=== PATIENT | female | born 1995 | race Caucasian/White ===

== ENCOUNTER → 2016-08-10 | Outpatient (CLI) | payer OTHER | LOC: MW.CHOBGYN 12:49 | PROVIDERS: ATTEND Advanced Practice Midwife | DX: Z34.90 Encounter for supervision of normal pregnancy, unspecified, unspecified trimester (principal) | CPT/HCPCS: 36415; 82950; 85027; 86850 ==

== ENCOUNTER 2016-08-18 02:48 | Outpatient (CLI) | payer OTHER ==
[2016-08-18] MEDS ORDERED: Acetaminophen/oxyCODONE 325-5 MG Tab PO ONE (04:47)
[2016-08-18] MEDS ORDERED: Nitrofurantoin Monohydrate/Macrocrystalline 100 MG Cap PO ONE (04:47)
== END 2016-08-18 06:05 | disposition home or self-care (01) ==
LOC: MW.OBCHECK 02:48 → MW.OB 02:51 → MW.OBCHECK 06:05
PROVIDERS: ATTEND Obstetrics & Gynecology
DX: R11.2 Nausea with vomiting, unspecified (principal); R10.9 Unspecified abdominal pain; Z34.83 Encounter for supervision of other normal pregnancy, third trimester
CPT/HCPCS: 59025; 81001; 84112; A9270

== ENCOUNTER → 2016-08-20 | Outpatient (CLI) | payer OTHER | END | disposition home or self-care (01) | LOC: MW.CHOBGYN 16:07 | PROVIDERS: ATTEND Advanced Practice Midwife | DX: M54.9 Dorsalgia, unspecified (principal) | CPT/HCPCS: 81001; 87086 ==

== ENCOUNTER → 2016-08-21 | Outpatient (CLI) | payer OTHER | LOC: MW.CHOBGYN 08:38 | PROVIDERS: ATTEND Advanced Practice Midwife | DX: R39.9 Unspecified symptoms and signs involving the genitourinary system (principal) | CPT/HCPCS: 36415; 85025 ==

== ENCOUNTER → 2016-08-24 | Outpatient (CLI) | payer OTHER ==
[2016-08-24 09:31] LABS: CHLORIDE,CL 107 mmol/L (98-110); SODIUM,NA 138 mmol/L (136-146)
== END ==
LOC: MW.CHFP 08:34
PROVIDERS: ATTEND Physician Assistant
DX: R10.9 Unspecified abdominal pain (principal)
CPT/HCPCS: 36415; 80053; 81001; 82150; 83690; 85025; 85652; 87086

== ENCOUNTER → 2016-09-26 | Outpatient (CLI) | payer OTHER ==
--- NOTE | 2016-09-26 14:07 | US ---
ULTRASOUND EXAMINATION OF the right lower extremity WITH DOPPLER HISTORY: Pain FINDINGS: Examination of the right leg was performed from the groin to the calf region. All visualized segmen ts including common femoral, proximal greater saphenous, superficial femoral, popliteal and calf vei ns appear patent with good compressibility and augmentation. Adequate color flow was not appreciate d without augmentation. This may represent compression on the IVC secondary to the patient's gravid state. IMPRESSION: No deep vein thrombosis identified. If symptoms consist consider follow-up imaging.
== END ==
LOC: MW.CHOBGYN 12:09
PROVIDERS: ATTEND Advanced Practice Midwife
DX: M79.661 Pain in right lower leg (principal); M79.89 Other specified soft tissue disorders
CPT/HCPCS: 93971-26-RT; 93971-RT

== ENCOUNTER → 2016-10-08 | Outpatient (CLI) | payer OTHER | LOC: MW.CHOBGYN 15:56 | PROVIDERS: ATTEND Advanced Practice Midwife | DX: Z34.90 Encounter for supervision of normal pregnancy, unspecified, unspecified trimester (principal) | CPT/HCPCS: 87081 ==

== ENCOUNTER 2016-10-24 16:33 | Inpatient (IN) | payer OTHER ==
[2016-10-24] MEDS ORDERED: Sodium Chloride 0.9% 10 ML Syringe FLUSH PRN (16:59)
[2016-10-24] MEDS ORDERED: Carboprost Tromethamine 250 MCG/1 ML Amp IM PRN (16:59)
[2016-10-24] MEDS ORDERED: Butorphanol 1 MG/ML SDV IVPUSH PRN (16:59)
[2016-10-24] MEDS ORDERED: Sodium Chloride 0.9% 2.5 ML Syringe FLUSH PRN (16:59)
[2016-10-24] MEDS ORDERED: Methylergonovine 0.2 MG/1 ML Amp IM PRN (16:59)
[2016-10-24] MEDS ORDERED: Terbutaline 1 MG/ML SDV SUBCUT PRN (16:59)
[2016-10-24] MEDS ORDERED: Lidocaine 1% 50 ML MDV INJECT PRN (16:59)
[2016-10-24] MEDS ORDERED: Water For Irrigation,Sterile 1,000 ML Container IRR PRN (16:59)
[2016-10-24] MEDS ORDERED: Nalbuphine 10 MG/1 ML Vial IVPUSH PRN (16:59)
[2016-10-24] MEDS ORDERED: Oxytocin/Lactated Ringers 30 UNIT/500 ML BAG IV SCH (17:00)
[2016-10-24] MEDS ORDERED: Lactated Ringers 1,000 ML IV SCH (17:00)
[2016-10-24] MEDS ORDERED: Misoprostol 25 MCG (1/4 of 100 MCG) Tab PO ONE (17:07)
[2016-10-24] MEDS ORDERED: Misoprostol 25 MCG (1/4 of 100 MCG) Tab ONE (18:06)
--- NOTE | 2016-10-24 18:18 | PCM.LDHP ---
L&D History of Present Illness - General Date of Service: 10/24/16 Admit Problem/Dx: Patient Status Order with Admit Dx/Problem 10/24/16 17:01 Patient Status [ADT] Routine Admission Diagnosis/Problem Admission Diagnosis/Problem -induced hypertension 10/24/16 18:13 21 yo EDC 11/03/2016 38 4/7 wks. Comes from the clinic due to elevated BP 160/100, A+, R Equivocal, GBS neg. 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 General: Reports: No Symptoms HEENT: Reports: No Symptoms Pulmonary: Reports: No Symptoms Cardiovascular: Reports: No Symptoms Gastrointestinal: Reports: No Symptoms Genitourinary: Reports: No Symptoms Musculoskeletal: Reports: No Symptoms Skin: Reports: No Symptoms Psychiatric: Reports: No Symptoms Neurological: Reports: No Symptoms Hematologic/Lymphatic: Reports: No Symptoms Immunologic: Reports: No Symptoms L&D Exam - Exam Exam: See Below - Vital Signs Weight: 74.843 kg - OB Specific Movement: Active Heart Tones: Present Heart Rate (FHR) Variability: Moderate (6-25 bmp) Presentation: Vertex Estimated Weight: 3600 - Campos Score Campos Score Cervix Position: Midposition Campos Score Consistency: Soft Campos Score Effacement: 31-50% Campos Score Dilation: 1-2 cm Campos Score 's Station: -2 Campos Score Total: 6 - Exam General: Alert, Oriented, Cooperative HEENT: Hearing Intact Lungs: Normal Respiratory Effort Abdomen: Soft (gravid) Rectal Exam: Deferred Genitourinary: Normal bimanual exam, Cervical dilitation Back Exam: Full Range of Motion Extremities: Normal Inspection Skin: Warm, Dry, Intact Neurological: Cranial Nerves Intact, Reflexes Equal Bilateral, Normal Gait, Normal Speech, Normal Tone Psychiatric: Alert, Normal Affect, Normal Mood - Patient Data Lab Results last 24 hrs: Laboratory Results - last 24 hr 10/24/16 10/24/16 Range/Units 16:25 17:29 WBC 10.23 (4.0-11.0) K/uL RBC 3.97 L (4.30-5.90) M/uL Hgb 10.7 L (12.0-16.0) g/dL Hct 32.6 L (36.0-46.0) % MCV 82.1 (80.0-98.0) fL MCH 27.0 (27.0-32.0) pg MCHC 32.8 (31.0-37.0) g/dL RDW Std Deviation 43.3 (28.0-62.0) fl RDW Coeff of Margarita 14 (11.0-15.0) % Plt Count 214 (150-400) K/uL MPV 12.10 H (7.40-12.00) fL Nucleated RBC % 0.0 /100WBC Nucleated RBCs # 0 K/uL Urine Color YELLOW Urine Appearance CLEAR Urine pH 7.0 (5.0-8.0) Ur Specific [place] 1.015 (1.001-1.035) Urine Protein 100 (NEGATIVE) mg/dL Urine Glucose (UA) NEGATIVE (NEGATIVE) mg/dL Urine Ketones NEGATIVE (NEGATIVE) mg/dL Urine Occult Blood NEGATIVE (NEGATIVE) Urine Nitrite NEGATIVE (NEGATIVE) Urine Bilirubin NEGATIVE (NEGATIVE) Urine Urobilinogen 0.2 (<2.0) EU/dL Ur Leukocyte Esterase NEGATIVE (NEGATIVE) Result Diagrams: 10/24/16 17:29 - Problem List (1) Supervision of normal IUP (intrauterine ) in primigravida SNOMED Code(s): 60379704, 135394636, 872264055, 437923351 ICD Code: Z34.00 - ENCNTR FOR SUPRVSN OF NORMAL FIRST , UNSP TRIMESTER Status: Acute Priority: High Current Visit: Yes Qualifiers: Trimester: third trimester Qualified Code(s): Z34.03 - Encounter for supervision of normal first , third trimester (2) Elevated blood pressure affecting in third trimester, antepartum SNOMED Code(s): 11560402, 92533422, 295008639 ICD Code: O13.3 - GESTATIONAL HTN W/O SIGNIFICANT PROTEINURIA, THIRD TRIMESTER Status: Acute Priority: High Current Visit: Yes Problem List Initiated/Reviewed/Updated: Yes Orders Last 24hrs: Active Orders 24 hr Category Date Time Status Patient Status [ADT] Routine ADT 10/24/16 17:01 Active Bedrest Bathroom Privileges [RC] ASDIRECTED Care 10/24/16 17:01 Active Communication Order [RC] ASDIRECTED Care 10/24/16 17:01 Active Communication Order [RC] ASDIRECTED Care 10/24/16 17:01 Active Heart Tones [RC] CONTINUOUS Care 10/24/16 17:01 Active Non Stress Test [RC] PER UNIT ROUTINE Care 10/24/16 17:01 Active May Shower [RC] ASDIRECTED Care 10/24/16 17:01 Active Notify Provider [RC] PRN Care 10/24/16 17:01 Active Notify Provider [RC] PRN Care 10/24/16 17:01 Active Notify Provider [RC] PRN Care 10/24/16 17:01 Active Notify Provider [RC] STAT Care 10/24/16 17:01 Active Up ad Kathleen [RC] ASDIRECTED Care 10/24/16 17:01 Active Vaginal Exam [RC] PRN Care 10/24/16 17:01 Active Vaginal Exam [RC] PRN Care 10/24/16 17:01 Active Vital Signs [RC] PER UNIT ROUTINE Care 10/24/16 17:01 Active Vital Signs [RC] PER UNIT ROUTINE Care 10/24/16 17:01 Active Regular Diet [DIET] Diet 10/24/16 Dinner Active TYPE AND SCREEN [BBK] Routine Lab 10/24/16 17:29 Received Butorphanol [Stadol] Med 10/24/16 16:59 Active 1 mg IVPUSH Q1H PRN Carboprost Tromethamine [Hemabate DS] Med 10/24/16 16:59 Active 250 mcg IM ASDIRECTED PRN Lactated Ringers [Ringers, Lactated] 1,000 ml Med 10/24/16 17:00 Active IV ASDIRECTED Lidocaine 1% [Xylocaine 1%] Med 10/24/16 16:59 Active 50 ml INJECT .ONCE PRN Methylergonovine [Methergine] Med 10/24/16 16:59 Active 0.2 mg IM ASDIRECTED PRN Misoprostol [Cytotec] Med 10/24/16 21:30 Active 25 mcg PO Q4H Misoprostol [Cytotec] Med 10/24/16 17:56 Ordered 25 mcg VAG Q4HR Nalbuphine [Nubain] Med 10/24/16 16:59 Active 10 mg IVPUSH Q1H PRN Sodium Chloride 0.9% [Saline Flush] Med 10/24/16 16:59 Active 10 ml FLUSH ASDIRECTED PRN Sodium Chloride 0.9% [Saline Flush] Med 10/24/16 16:59 Active 2.5 ml FLUSH ASDIRECTED PRN Terbutaline [Brethine] Med 10/24/16 16:59 Active 0.25 mg SUBCUT ASDIRECTED PRN Water For Irrigation,Sterile [Sterile Water for Med 10/24/16 16:59 Active Irrigation] 1,000 ml IRR ASDIRECTED PRN Scalp Electrode [WOMSER] Per Unit Routine Oth 10/24/16 17:01 Ordered Peripheral IV Insertion Adult [OM.PC] Routine Oth 10/24/16 17:01 Ordered Resuscitation Status Routine Resus Stat 10/24/16 16:59 Ordered Medication Orders Butorphanol Tartrate (Stadol) 1 mg IVPUSH Q1H PRN PRN Reason: Pain Carboprost Tromethamine (Hemabate Ds) 250 mcg IM ASDIRECTED PRN PRN Reason: Post Hemorrhage Lactated Ringer's (Ringers, Lactated) 1,000 mls @ 150 mls/hr IV ASDIRECTED VANCE Lidocaine HCl (Xylocaine 1%) 50 ml INJECT .ONCE PRN PRN Reason: Laceration repair Methylergonovine Maleate (Methergine) 0.2 mg IM ASDIRECTED PRN PRN Reason: Post Hemorrhage Misoprostol (Cytotec) 25 mcg PO Q4H VANCE Misoprostol (Cytotec) 25 mcg VAG Q4HR VANCE Nalbuphine HCl (Nubain) 10 mg IVPUSH Q1H PRN PRN Reason: Pain (severe 7-10) Stop: 10/24/16 19:00 Sodium Chloride (Saline Flush) 10 ml FLUSH ASDIRECTED PRN PRN Reason: Keep Vein Open Sodium Chloride (Saline Flush) 2.5 ml FLUSH ASDIRECTED PRN PRN Reason: Keep Vein Open Sterile Water (Sterile Water For Irrigation) 1,000 ml IRR ASDIRECTED PRN PRN Reason: delivery Terbutaline Sulfate (Brethine) 0.25 mg SUBCUT ASDIRECTED PRN PRN Reason: Tacysystole Assessment/Plan Comment:: IOL A: 21 yo EDC 11/03/2016 38 4/7 wks. Comes from the clinic due to elevated BP 160/100, A+, R Equivocal, GBS neg. P: Admit to L&D, Cytotec per protocal then pitocin if needed. AROM when able. Deliver
[2016-10-24] MEDS ORDERED: hydrALAZINE 20 MG/ML SDV IVPUSH STA (18:27)
[2016-10-24] MEDS ORDERED: Misoprostol 50 MCG (1/2 of 100 MCG) Tab VAG ONE (21:30)
[2016-10-24] MEDS: Labetalol 100 MG/20 ML MDV IVPUSH PRN ×2 (21:33→22:53)
[2016-10-24] MEDS: Misoprostol 25 MCG (1/4 of 100 MCG) Tab PO SCH (22:14)
[2016-10-24] MEDS: Misoprostol 50 MCG (1/2 of 100 MCG) Tab VAG SCH (22:19)
[2016-10-24] MEDS ORDERED: hydrOXYzine Pamoate 25 MG Cap PO PRN ×2 (22:37→23:56)
[2016-10-24] MEDS ORDERED: Ondansetron 4 MG/2 ML SDV IVPUSH PRN (22:38)
[2016-10-25] MEDS: Nalbuphine 10 MG/1 ML Vial IVPUSH PRN ×3 (02:47→15:02)
[2016-10-25] MEDS: Misoprostol 25 MCG (1/4 of 100 MCG) Tab PO SCH ×3 (03:29→23:31)
[2016-10-25 08:41] LABS: CHLORIDE,CL 109 mmol/L (98-110); SODIUM,NA 138 mmol/L (136-146)
[2016-10-25] MEDS ORDERED: Oxytocin/Lactated Ringers 30 UNIT/500 ML BAG IV SCH (08:45)
--- NOTE | 2016-10-25 15:45 | PCM.PREANE ---
Preanesthetic Assessment - Procedure Proposed Procedure: Labor epidural for induction due to hypertension. - Anesthesia/Transfusion/Family Hx Anesthesia History: No Prior Anesthesia Family History of Anesthesia Reaction: No Transfusion History: No Prior Transfusion(s) - Review of Systems General: No Symptoms Pulmonary: No Symptoms Cardiovascular: No Symptoms Gastrointestinal: Nausea (Associated with current situation), Vomiting Neurological: No Symptoms Other: Reports: None - Physical Assessment NPO Status Date: 10/25/16 NPO Status Time: 12:00 (Ate hamburger at lunch, had emesis just prior to induction) Pulse: 83 Blood Pressure: 164/89 Vital Signs: Last Vital Signs Temp Pulse 83 10/24/16 22:53 Resp BP 164/89 H 10/24/16 22:53 Pulse Ox Height: 1.7 m Weight: 74.843 kg ASA Class: 3 Mental Status: Alert & Oriented x3 Airway Class: Mallampati = 3 Dentition: Reports: Normal Dentition Thyro-Mental Finger Breadths: 3 Mouth Opening Finger Breadths: 3 ROM/Head Extension: Full Lungs: Clear to auscultation, Normal respiratory effort Cardiovascular: Regular Rate, Regular Rhythm - Lab Values: Laboratory Last Values WBC 10.88 K/uL (4.0-11.0) 10/25/16 08:06 RBC 3.86 M/uL (4.30-5.90) L 10/25/16 08:06 Hgb 10.3 g/dL (12.0-16.0) L 10/25/16 08:06 Hct 32.0 % (36.0-46.0) L 10/25/16 08:06 MCV 82.9 fL (80.0-98.0) 10/25/16 08:06 MCH 26.7 pg (27.0-32.0) L 10/25/16 08:06 MCHC 32.2 g/dL (31.0-37.0) 10/25/16 08:06 RDW Std Deviation 44.0 fl (28.0-62.0) 10/25/16 08:06 RDW Coeff of Margarita 15 % (11.0-15.0) 10/25/16 08:06 Plt Count 191 K/uL (150-400) 10/25/16 08:06 MPV 11.90 fL (7.40-12.00) 10/25/16 08:06 Nucleated RBC % 0.0 /100WBC 10/25/16 08:06 Nucleated RBCs # 0 K/uL 10/25/16 08:06 Sodium 138 mmol/L (136-146) 10/25/16 08:06 Potassium 3.8 mmol/L (3.5-5.1) 10/25/16 08:06 Chloride 109 mmol/L (98-110) 10/25/16 08:06 Carbon Dioxide 19 mmol/L (21-31) L 10/25/16 08:06 BUN 9 mg/dL (6.0-23.0) 10/25/16 08:06 Creatinine 0.7 mg/dL (0.6-1.5) 10/25/16 08:06 Est Cr Clr Drug Dosing 122.59 mL/min 10/25/16 08:06 Estimated GFR (MDRD) > 60.0 ml/min 10/25/16 08:06 Glucose 89 mg/dL (60-110) 10/25/16 08:06 Uric Acid 6.4 mg/dL (2.1-6.2) H 10/25/16 08:06 Calcium 8.4 mg/dL (8.8-10.8) L 10/25/16 08:06 Total Bilirubin 0.4 mg/dL (0.1-1.5) 10/25/16 08:06 AST 10 IU/L (5-40) 10/25/16 08:06 ALT 6 IU/L (8-54) L 10/25/16 08:06 Alkaline Phosphatase 166 (40-150) H 10/25/16 08:06 Total Protein 5.6 g/dL (6.0-8.0) L 10/25/16 08:06 Albumin 2.8 g/dL (3.5-5.0) L 10/25/16 08:06 Globulin 2.8 g/dL (2.0-3.5) 10/25/16 08:06 Albumin/Globulin Ratio 1.0 (1.3-2.8) L 10/25/16 08:06 Urine Color YELLOW 10/24/16 16:25 Urine Appearance CLEAR 10/24/16 16:25 Urine pH 7.0 (5.0-8.0) 10/24/16 16:25 Ur Specific [place] 1.015 (1.001-1.035) 10/24/16 16:25 Urine Protein 100 mg/dL (NEGATIVE) 10/24/16 16:25 Urine Glucose (UA) NEGATIVE mg/dL (NEGATIVE) 10/24/16 16:25 Urine Ketones NEGATIVE mg/dL (NEGATIVE) 10/24/16 16:25 Urine Occult Blood NEGATIVE (NEGATIVE) 10/24/16 16:25 Urine Nitrite NEGATIVE (NEGATIVE) 10/24/16 16:25 Urine Bilirubin NEGATIVE (NEGATIVE) 10/24/16 16:25 Urine Urobilinogen 0.2 EU/dL (<2.0) 10/24/16 16:25 Ur Leukocyte Esterase NEGATIVE (NEGATIVE) 10/24/16 16:25 Blood Type A POSITIVE 10/24/16 17:29 Antibody Screen NEGATIVE 10/24/16 17:29 - Allergies Allergies/Adverse Reactions: Allergies Allergy/AdvReac Type Severity Reaction Status Date / Time No Known Allergies Allergy Verified 08/18/16 03:02 - Blood Blood Available: Yes Product(s) Available: PRBC - Acknowledgements Anesthesia Type Planned: Epidural Pt an Appropriate Candidate for the Planned Anesthesia: Yes Alternatives and Risks of Anesthesia Discussed w Pt/Guardian: Yes Pt/Guardian Understands and Agrees with Anesthesia Plan: Yes PreAnesthesia Questionnaire - Past Health History Medical/Surgical History: Denies 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: Psychiatric History: Reports: Anxiety, Panic Attack - CURRENT (IN HOUSE) MEDS Current Meds: Current Medications Butorphanol Tartrate (Stadol) 1 mg IVPUSH Q1H PRN PRN Reason: Pain Carboprost Tromethamine (Hemabate Ds) 250 mcg IM ASDIRECTED PRN PRN Reason: Post Hemorrhage Hydroxyzine Pamoate (Vistaril) 50 mg PO BEDTIME PRN PRN Reason: Insomnia Last Admin: 10/24/16 23:53 Dose: 50 mg Lactated Ringer's (Ringers, Lactated) 1,000 mls @ 150 mls/hr IV ASDIRECTED VANCE Last Admin: 10/25/16 09:03 Dose: 150 mls/hr Oxytocin/Lactated Ringer's (Pitocin In Lr 30 Units/500 Ml) 30 unit in 500 mls @ 2 mls/hr IV TITRATE VANCE; 2 MUNITS/MIN PRN Reason: Protocol Last Titration: 10/25/16 13:50 Dose: 18 munits/min, 18 mls/hr Labetalol HCl (Normodyne) 20 mg IVPUSH Q10M PRN; Protocol PRN Reason: Hypertension Last Admin: 10/24/16 22:53 Dose: 20 mg Lidocaine HCl (Xylocaine 1%) 50 ml INJECT .ONCE PRN PRN Reason: Laceration repair Methylergonovine Maleate (Methergine) 0.2 mg IM ASDIRECTED PRN PRN Reason: Post Hemorrhage Misoprostol (Cytotec) 25 mcg PO Q4H VANCE Last Admin: 10/25/16 03:29 Dose: 25 mcg Misoprostol (Cytotec) 25 mcg VAG Q4HR [facility] Last Admin: 10/24/16 22:19 Dose: 25 mcg Nalbuphine HCl (Nubain) 10 mg IVPUSH Q1H PRN PRN Reason: Pain Last Admin: 10/25/16 15:02 Dose: 10 mg Ondansetron HCl (Zofran) 4 mg IVPUSH Q4H PRN PRN Reason: Nausea/Vomiting Sodium Chloride (Saline Flush) 10 ml FLUSH ASDIRECTED PRN PRN Reason: Keep Vein Open Sodium Chloride (Saline Flush) 2.5 ml FLUSH ASDIRECTED PRN PRN Reason: Keep Vein Open Sterile Water (Sterile Water For Irrigation) 1,000 ml IRR ASDIRECTED PRN PRN Reason: delivery Terbutaline Sulfate (Brethine) 0.25 mg SUBCUT ASDIRECTED PRN PRN Reason: Tacysystole Discontinued Medications Hydralazine HCl (Apresoline) 10 mg IVPUSH Q4H STA Stop: 10/24/16 18:28 Last Admin: 10/24/16 18:46 Dose: 10 mg Hydroxyzine Pamoate (Vistaril) 25 mg PO BEDTIME PRN PRN Reason: Insomnia Oxytocin/Lactated Ringer's (Pitocin In Lr 30 Units/500 Ml) 30 unit in 500 mls @ 999 mls/hr IV TITRATE VANCE PRN Reason: 999 MUNITS/MIN Stop: 10/24/16 17:31 Misoprostol (Cytotec) 25 mcg PO ONETIME ONE Stop: 10/24/16 17:08 Last Admin: 10/24/16 17:51 Dose: 25 mcg Misoprostol (Cytotec) 25 mcg VAG Q4HR ONE Stop: 10/24/16 21:31 Misoprostol (Cytotec) Confirm Administered Dose 25 mcg .ROUTE .STK-MED ONE Stop: 10/24/16 18:07 Last Admin: 10/24/16 18:10 Dose: 25 mcg Nalbuphine HCl (Nubain) 10 mg IVPUSH Q1H PRN PRN Reason: Pain (severe 7-10) Stop: 10/24/16 19:00 - Free Text/Narrative Note: Labor Analgesia/Epidural Procedure start date: 10/25/16 time: 155 Attending provider aware Chart reviewed Permit signed Labs reviewed VS/ FHR reviewed Pt identified/ID band Pt assessed Risks/Benefits discussed and accepted Monitors in place (BP, HR, SPO2) Patient, Site, Procedure Verification, Pause. pain "9./10" Fluid bolus infused (fluid type and amount): LR infusing at 999/hr. Titrate to BP Position: Sitting @ 1559 Prep: Betadine X 3 Sterile Drape Intradermal Wheal: 3 ml 1% Lidocaine Regional placement level: L4-5 Needle: 17 g Tuohy Approach: Midline Technique: JOSE RAMON glass syringe w 3 ml Sterile water JOSE RAMON needle depth: 6 cm Paresthesia: None Fluid Obtained: None Catheter insertion time: 1605 Catheter depth at skin: 20 cm Test Dose Time: 1606 RX: 3 ml 1.5% lidocaine with 1:200,000 epi Response: Negative Loading dose Time: 9693-8671 RX: 100 mcg fentanyl followed by 10 ml 0.2% ropivacaine in 2 ml increments over 13 minutes Pt position: semi fowlers with MAXIMO Continuous infusion Start Time: 1627 RX: 100 ml 0.2% ropivacaine with 200 mcg fentanyl [2mcg/ml] Continuous infusion rate: 8 ml/hr [employer] bolus option: 5 ml every 15 min Pt response Post procedure pain level: Level achieved: VS and FHR monitored in unit post placement (See OB traceview for documentation FHR with decelerations post epidural placement and labetolol. Nurse glove cleaner in attendance with labor nurses. Awaiting resolution of FHR to determine if continue with labor plan or section. Procedure end date: 10/25/16 time: 1656
[2016-10-25] MEDS ORDERED: Ropivacaine 0.2% 2 MG/ML 20 ML SDV ONE (15:51)
[2016-10-25] MEDS ORDERED: fentaNYL 100 MCG/2 ML SDV ONE (16:10)
[2016-10-25] MEDS: Labetalol 100 MG/20 ML MDV IVPUSH PRN (16:30)
[2016-10-25] MEDS ORDERED: Bupivacaine 0.5% 10 ML SDV ONE (16:57)
[2016-10-25] MEDS ORDERED: ceFAZolin 2 GM in Premix Bag 1 BAG IV ONE (17:11)
[2016-10-25] MEDS ORDERED: Citric Acid/Sodium Citrate Solution 30 ML Cup PO SCH (17:15)
[2016-10-25] MEDS ORDERED: Oxytocin 10 Units/1 ML SDV ONE (17:24)
[2016-10-25] MEDS ORDERED: ceFAZolin 1 GM Vial ONE (17:25)
[2016-10-25] MEDS ORDERED: Morphine PF 10 MG/10 ML SDV ONE (17:34)
[2016-10-25] MEDS ORDERED: Ondansetron 4 MG/2 ML SDV ONE (17:34)
[2016-10-25] MEDS ORDERED: Octyl 2-Cyanoacrylate 1 Tube ONE (17:48)
[2016-10-25] MEDS ORDERED: Phenylephrine/Normal Saline 100 MCG/ML 10 ML Syringe ONE (17:50)
[2016-10-25] MEDS ORDERED: Bisacodyl 10 MG Supp RECTAL PRN (17:52)
[2016-10-25] MEDS ORDERED: diphenhydrAMINE 50 MG/ML SDV IVPUSH PRN ×2 (17:52→18:06)
[2016-10-25] MEDS ORDERED: Acetaminophen/oxyCODONE 325-5 MG Tab PO PRN ×2 (17:52→18:06)
[2016-10-25] MEDS ORDERED: Ondansetron 4 MG/2 ML SDV IV PRN (17:52)
[2016-10-25] MEDS ORDERED: Lactated Ringers 1,000 ML IV SCH (18:00)
--- NOTE | 2016-10-25 18:01 | PCM.OPNOTE ---
- General Post-Op/Procedure Note Date of Surgery/Procedure: 10/25/16 Operative Procedure(s): Primary C/Section Pre Op Diagnosis: Term , PIH, Category II FAR Post-Op Diagnosis: Same Anesthesia Technique: Epidural Primary Surgeon: Adam Lane Sane Nurse: Serena Lance EBL in mLs: 700 Complications: None Condition: Good
[2016-10-25] MEDS ORDERED: fentaNYL 100 MCG/2 ML SDV IVPUSH PRN (18:06)
[2016-10-25] MEDS ORDERED: Naloxone 0.4 MG/ML Syringe IVPUSH PRN (18:06)
[2016-10-25] MEDS ORDERED: Nalbuphine 10 MG/1 ML Vial IVPUSH PRN (18:06)
--- NOTE | 2016-10-25 18:23 | PCM.POSTAN ---
POST ANESTHESIA ASSESSMENT - MENTAL STATUS Mental Status: alert, oriented - RESPIRATORY Respiratory Status: respiratory rate WNL, airway patent, O2 saturation stable - CARDIOVASCULAR CV Status: pulse rate WNL, blood pressure stable - GASTROINTESTINAL GI Status: no symptoms - POST OP HYDRATION Hydration Status: adequate & stable
[2016-10-25] MEDS: Ketorolac 30 MG/ML SDV IVPUSH SCH ×2 (18:36→23:33)
[2016-10-25] MEDS: Misoprostol 50 MCG (1/2 of 100 MCG) Tab VAG SCH ×2 (18:58→23:31)
[2016-10-25] MEDS: Lanolin 100% Cream 7 GM Tube TOP PRN (21:20)
--- NOTE | 2016-10-25 21:51 | OR ---
SURGEON: Adam Lane MD DATE OF PROCEDURE: POSTOPERATIVE DIAGNOSIS: Term , -induced hypertension, none reassuring heart rate. POSTOPERATIVE DIAGNOSIS: Term , -induced hypertension, none reassuring heart rate. OPERATION PERFORMED: Primary low transverse section. TRANSMISSION CALIBRATION ENGINEER: Serena Lance. ANESTHESIA: Epidural by Laurie Seo and Dr. Thomson. ESTIMATED BLOOD LOSS: 700 mL. COMPLICATION: None. FINDING: Normal uterus, tubes, and ovary, male fetus. score reported to be 8 and 9. The weight is not available at this time. INDICATION: This patient is 21, she is primigravida, she is followed in our clinic primarily by nurse ekg tech, Serena Lance. The patient is term, she has elevated blood pressure. Her blood pressures are ranging between 160/110 to 150/95. She is admitted for possible induction. We tried induction with Cytotec and Pitocin. The patient had an artificial rupture of the membrane at 3 cm clear fluid. However, the patient started having repeat late deceleration with slow recovery. She is only 3 cm, she is remote from delivery. A decision was made to do a primary low transverse section. PROCEDURE IN DETAIL: The patient was brought to the OR, properly identified, and after adequate level of epidural anesthesia, patient was prepped and draped in sterile fashion as usual with a Aldana catheter in the bladder. Low transverse Pfannenstiel skin incision done, Debbie's fascia and rectus fascia was opened in direction of the incision. The 2 recti muscles , peritoneal cavity was entered. Bladder flap was raised in the usual manner pushing the bladder away from the lower uterine segment. Low transverse uterine incision done and extended manually with hand and fetus was delivered who was in the vertex position. Dr. Janki Reynoso is the rate setter attended the delivery and the fetus after clamping the cord and handed to the Dr. Reynoso, and the resuscitating team. The fetus cried immediately. It was a male, score reported to be 8 and 9. The weight is not available. The placenta delivered spontaneous, complete, and intact and then repair of the lower uterine segment was done with 2-0 Vicryl continuous interlocking in 2 layers. Reperitonealization done with 3-0 Vicryl continuous and then the peritoneal cavity evacuated completely from all blood and blood clot and closed with 3-0 Vicryl continuous. The rectus fascia is closed with #1 PDS double strand continuous. The Debbie's fascia with 3-0 Vicryl continuous and the skin closed with 5-0 monofilamentous in a subcuticular fashion and Dermabond. Instrument and sponge count was correct. The patient tolerated the procedure well went to recovery room in stable general condition. LUKE ALONSO /[id number]
[2016-10-25] MEDS ORDERED: Furosemide 20 MG/2 ML VIAL IVPUSH ONE (23:24)
[2016-10-25] MEDS: Docusate Sodium 100 MG Cap PO SCH (23:33)
[2016-10-26] MEDS: Ketorolac 30 MG/ML SDV IVPUSH SCH ×3 (05:40→18:20)
--- NOTE | 2016-10-26 08:03 | PCM.PNPP ---
- General Info Date of Service: 10/26/16 Admission Dx/Problem (Free Text): Patient Status Order with Admit Dx/Problem 10/24/16 17:01 Patient Status [ADT] Routine Admission Diagnosis/Problem Admission Diagnosis/Problem -induced hypertension 10/24/16 18:13 21 yo EDC 11/03/2016 38 4/7 wks. Comes from the clinic due to elevated BP 160/100, A+, R Equivocal, GBS neg. Functional Status: Reports: pain controlled, tolerating diet, ambulating (morgan) - Review of Systems General: Reports: No Symptoms HEENT: Reports: no symptoms Pulmonary: Reports: no symptoms Cardiovascular: Reports: No Symptoms Gastrointestinal: Reports: No symptoms Genitourinary: Reports: no symptoms Musculoskeletal: Reports: no symptoms Skin: Reports: no symptoms Neurological: Reports: No Symptoms Psychiatric: Reports: no symptoms - General Info Date of Service: 10/26/16 - Patient Data Vital Signs - most recent: Last Vital Signs Temp 36.5 C 10/26/16 04:00 Pulse 88 10/26/16 04:00 Resp 18 10/26/16 06:00 BP 136/84 10/26/16 04:00 Pulse Ox 96 10/26/16 06:00 Weight - most recent: 74.843 kg I&O - last 24 hours: Intake & Output 10/25/16 10/26/16 10/26/16 22:59 06:59 14:59 Intake Total 1000 2600 Output Total 300 1150 Balance 700 1450 Lab Results - last 24 hrs: Laboratory Results - last 24 hr 10/25/16 10/25/16 10/26/16 Range/Units 08:06 08:06 04:52 WBC 10.88 (4.0-11.0) K/uL RBC 3.86 L (4.30-5.90) M/uL Hgb 10.3 L 10.0 L (12.0-16.0) g/dL Hct 32.0 L 30.9 L (36.0-46.0) % MCV 82.9 (80.0-98.0) fL MCH 26.7 L (27.0-32.0) pg MCHC 32.2 (31.0-37.0) g/dL RDW Std Deviation 44.0 (28.0-62.0) fl RDW Coeff of Margarita 15 (11.0-15.0) % Plt Count 191 (150-400) K/uL MPV 11.90 (7.40-12.00) fL Nucleated RBC % 0.0 /100WBC Nucleated RBCs # 0 K/uL Sodium 138 (136-146) mmol/L Potassium 3.8 (3.5-5.1) mmol/L Chloride 109 (98-110) mmol/L Carbon Dioxide 19 L (21-31) mmol/L BUN 9 (6.0-23.0) mg/dL Creatinine 0.7 (0.6-1.5) mg/dL Est Cr Clr Drug Dosing 122.59 mL/min Estimated GFR (MDRD) > 60.0 ml/min Glucose 89 (60-110) mg/dL Uric Acid 6.4 H (2.1-6.2) mg/dL Calcium 8.4 L (8.8-10.8) mg/dL Total Bilirubin 0.4 (0.1-1.5) mg/dL AST 10 (5-40) IU/L ALT 6 L (8-54) IU/L Alkaline Phosphatase 166 H (40-150) Total Protein 5.6 L (6.0-8.0) g/dL Albumin 2.8 L (3.5-5.0) g/dL Globulin 2.8 (2.0-3.5) g/dL Albumin/Globulin Ratio 1.0 L (1.3-2.8) Med Orders - Current: Current Medications Bisacodyl (Dulcolax) 10 mg RECTAL .ONCE PRN PRN Reason: Constipation Butorphanol Tartrate (Stadol) 1 mg IVPUSH Q1H PRN PRN Reason: Pain Carboprost Tromethamine (Hemabate Ds) 250 mcg IM ASDIRECTED PRN PRN Reason: Post Hemorrhage Citric Acid/Sodium Citrate (Bicitra Solution) 30 ml PO .ONCE VANCE Last Admin: 10/25/16 17:17 Dose: 30 ml Diphenhydramine HCl (Benadryl) 25 mg IVPUSH Q6H PRN PRN Reason: Itching or Nausea Diphenhydramine HCl (Benadryl) 25 - 50 mg IVPUSH Q4H PRN PRN Reason: Itching Stop: 10/26/16 18:09 Docusate Sodium (Colace) 100 mg PO BID VANCE Last Admin: 10/25/16 23:33 Dose: 100 mg Emollient Ointment (Lansinoh Hpa) 0 gm TOP ASDIRECTED PRN PRN Reason: Sore Nipples Last Admin: 10/25/16 21:20 Dose: 1 tube Fentanyl (Sublimaze) 50 - 100 mcg IVPUSH Q30M PRN PRN Reason: Breakthrough Pain Stop: 10/26/16 18:07 Hydroxyzine Pamoate (Vistaril) 50 mg PO BEDTIME PRN PRN Reason: Insomnia Last Admin: 10/24/16 23:53 Dose: 50 mg Lactated Ringer's (Ringers, Lactated) 1,000 mls @ 150 mls/hr IV ASDIRECTED VANCE Last Admin: 10/25/16 09:03 Dose: 150 mls/hr Oxytocin/Lactated Ringer's (Pitocin In Lr 30 Units/500 Ml) 30 unit in 500 mls @ 2 mls/hr IV TITRATE VANCE; 2 MUNITS/MIN PRN Reason: Protocol Last Titration: 10/25/16 13:50 Dose: 18 munits/min, 18 mls/hr Lactated Ringer's (Ringers, Lactated) 1,000 mls @ 125 mls/hr IV ASDIRECTED VANCE Last Admin: 10/25/16 19:30 Dose: 125 mls/hr Ibuprofen (Motrin) 800 mg PO Q8H PRN PRN Reason: mild pain or fever Ketorolac Tromethamine (Toradol) 30 mg IVPUSH Q6H [facility] Stop: 10/26/16 18:01 Last Admin: 10/26/16 05:40 Dose: 30 mg Labetalol HCl (Normodyne) 20 mg IVPUSH Q10M PRN; Protocol PRN Reason: Hypertension Last Admin: 10/25/16 16:30 Dose: 20 mg Lidocaine HCl (Xylocaine 1%) 50 ml INJECT .ONCE PRN PRN Reason: Laceration repair Methylergonovine Maleate (Methergine) 0.2 mg IM ASDIRECTED PRN PRN Reason: Post Hemorrhage Nalbuphine HCl (Nubain) 10 mg IVPUSH Q1H PRN PRN Reason: Pain Last Admin: 10/25/16 15:02 Dose: 10 mg Nalbuphine HCl (Nubain) 2.5 - 10 mg IVPUSH Q3H PRN PRN Reason: Pruritis Stop: 10/26/16 18:08 Naloxone HCl (Narcan) 0.1 mg IVPUSH ONETIME PRN PRN Reason: Respiratory Depression Stop: 10/26/16 18:09 Ondansetron HCl (Zofran) 4 mg IVPUSH Q4H PRN PRN Reason: Nausea/Vomiting Ondansetron HCl (Zofran) 4 mg IV Q4H PRN PRN Reason: Nausea/Vomiting Oxycodone/Acetaminophen (Percocet 325-5 Mg) 1 tab PO Q4H PRN PRN Reason: Pain (moderate 4-6) Oxycodone/Acetaminophen (Percocet 325-5 Mg) 2 tab PO Q4H PRN PRN Reason: Pain (moderate 4-6) Oxycodone/Acetaminophen (Percocet 325-5 Mg) 1 - 2 tab PO Q4H PRN PRN Reason: Breakthrough Pain Stop: 10/26/16 18:00 Last Admin: 10/26/16 04:59 Dose: 1 tab Sodium Chloride (Saline Flush) 10 ml FLUSH ASDIRECTED PRN PRN Reason: Keep Vein Open Sodium Chloride (Saline Flush) 2.5 ml FLUSH ASDIRECTED PRN PRN Reason: Keep Vein Open Sterile Water (Sterile Water For Irrigation) 1,000 ml IRR ASDIRECTED PRN PRN Reason: delivery Terbutaline Sulfate (Brethine) 0.25 mg SUBCUT ASDIRECTED PRN PRN Reason: Tacysystole Last Admin: 10/25/16 16:45 Dose: 0.25 mg Discontinued Medications Bupivacaine HCl (Sensorcaine-Mpf 0.5%) Confirm Administered Dose 20 ml .ROUTE .STK-MED ONE Stop: 10/25/16 16:58 Last Admin: 10/25/16 18:14 Dose: Not Given Cefazolin Sodium (Ancef) Confirm Administered Dose 2 gm .ROUTE .STK-MED ONE Stop: 10/25/16 17:26 Fentanyl (Sublimaze) Confirm Administered Dose 100 mcg .ROUTE .STK-MED ONE Stop: 10/25/16 16:11 Last Admin: 10/25/16 18:14 Dose: Not Given Furosemide (Lasix) 20 mg IVPUSH ONETIME ONE Stop: 10/25/16 23:25 Last Admin: 10/25/16 23:34 Dose: 20 mg Hydralazine HCl (Apresoline) 10 mg IVPUSH Q4H [facility] Stop: 10/24/16 18:28 Last Admin: 10/24/16 18:46 Dose: 10 mg Hydroxyzine Pamoate (Vistaril) 25 mg PO BEDTIME PRN PRN Reason: Insomnia Oxytocin/Lactated Ringer's (Pitocin In Lr 30 Units/500 Ml) 30 unit in 500 mls @ 999 mls/hr IV TITRATE VANCE PRN Reason: 999 MUNITS/MIN Stop: 10/24/16 17:31 Last Admin: 10/25/16 23:29 Dose: Not Given Ropivacaine/Fentanyl/NS (Fentanyl 2 Mcg-Ropiv 0.2%-Ns) Confirm Administered Dose 100 mls @ as directed .ROUTE .STK-MED ONE Stop: 10/25/16 15:52 Last Admin: 10/25/16 18:13 Dose: Not Given Cefazolin Sodium/Dextrose 2 gm (/ Premix) 50 mls @ 100 mls/hr IV ONETIME ONE Stop: 10/25/16 17:40 Last Admin: 10/25/16 18:14 Dose: Not Given Misoprostol (Cytotec) 25 mcg PO ONETIME ONE Stop: 10/24/16 17:08 Last Admin: 10/24/16 17:51 Dose: 25 mcg Misoprostol (Cytotec) 25 mcg PO Q4H [facility] Last Admin: 10/25/16 23:31 Dose: Not Given Misoprostol (Cytotec) 25 mcg VAG Q4HR ONE Stop: 10/24/16 21:31 Misoprostol (Cytotec) 25 mcg VAG Q4HR [facility] Last Admin: 10/25/16 23:31 Dose: Not Given Misoprostol (Cytotec) Confirm Administered Dose 25 mcg .ROUTE .STK-MED ONE Stop: 10/24/16 18:07 Last Admin: 10/24/16 18:10 Dose: 25 mcg Morphine Sulfate (Duramorph Pf) Confirm Administered Dose 10 mg .ROUTE .STK-MED ONE Stop: 10/25/16 17:35 Nalbuphine HCl (Nubain) 10 mg IVPUSH Q1H PRN PRN Reason: Pain (severe 7-10) Stop: 10/24/16 19:00 Octyl Cyanoacrylate (Dermabond Advance) Confirm Administered Dose 1 applic .ROUTE .STK-MED ONE Stop: 10/25/16 17:49 Ondansetron HCl (Zofran) Confirm Administered Dose 4 mg .ROUTE .STK-MED ONE Stop: 10/25/16 17:35 Oxytocin (Pitocin) Confirm Administered Dose 20 unit .ROUTE .STK-MED ONE Stop: 10/25/16 17:25 Phenylephrine HCl (Phenylephrine In Ns 100 Mcg/Ml) Confirm Administered Dose 1 mg .ROUTE .STK-MED ONE Stop: 10/25/16 17:51 Ropivacaine (Naropin 0.2%) Confirm Administered Dose 20 ml .ROUTE .STK-MED ONE Stop: 10/25/16 15:52 Last Admin: 10/25/16 18:14 Dose: Not Given - Infant Interaction Disposition, : [place] in Room with Family Infant Interaction: Holding Infant Feeding: Breastfed ; Nursed Well Support Person: Significant Other - Recovery Exam Fundal Tone: Firm Fundal Level: 1 Fingerbreadths Below Umbilicus Fundal Placement: Midline Lochia Amount: Scant Lochia Color: Rubra/Red Bladder Status: Indwelling Catheter in Place - Exam General: alert, oriented, cooperative, no acute distress Lungs: Normal respiratory effort Abdomen: soft, no tenderness, no distension Extremities: no edema Skin: warm, dry, intact Wound/Incisions: healing well, dressing dry and intact, drainage (looks to be old) Neurological: no new focal deficit, normal speech, normal tone Psy/Mental Status: alert, normal affect, normal mood - Problem List & Annotations (1) Supervision of normal IUP (intrauterine ) in primigravida SNOMED Code(s): 64374486, 060623630, 245180760, 486222403 Code(s): Z34.00 - ENCNTR FOR SUPRVSN OF NORMAL FIRST , UNSP TRIMESTER Status: Acute Priority: High Current Visit: Yes Qualifiers: Trimester: third trimester Qualified Code(s): Z34.03 - Encounter for supervision of normal first , third trimester (2) Elevated blood pressure affecting in third trimester, antepartum SNOMED Code(s): 02464293, 05274365, 605061278 Code(s): O13.3 - GESTATIONAL HTN W/O SIGNIFICANT PROTEINURIA, THIRD TRIMESTER Status: Acute Priority: High Current Visit: Yes (3) delivery due to maternal disorder SNOMED Code(s): 931094515 Code(s): XWT9959 - Status: Acute Priority: Medium Current Visit: Yes - Problem List Review Problem List Initiated/Reviewed/Updated: Yes - My Orders Last 24 Hours: My Active Orders 10/25/16 08:45 Oxytocin/Lactated Ringers [Pitocin in LR 30 Units/500 ML] 30 unit in 500 ml IV TITRATE - Assessment Assessment:: Post day 1 VSS, BP wnl, AF, Abd soft and non-tender, passing gas, morgan intact urine clear , breast feeding well. Stable - Plan Plan:: IOL A: 21 yo EDC 11/03/2016 38 4/7 wks. Comes from the clinic due to elevated BP 160/100, A+, R Equivocal, GBS neg. P: Admit to L&D, Cytotec per protocal then pitocin if needed. AROM when able. Deliver PP day 1 P: continue pp plan of care. May shower and d/c morgan and remove dressing.
--- NOTE | 2016-10-26 12:58 | PCM48HPAN ---
Post Anesthesia Note - EVALUATION WITHIN 48HRS OF ANESTHETIC Vital Signs in Normal Range: Yes (BP is still high, but lower than it was prior to ) Patient Participated in Evaluation: Yes Respiratory Function Stable: Yes Airway Patent: Yes Cardiovascular Function Stable: Yes Hydration Status Stable: Yes Pain Control Satisfactory: Yes Nausea and Vomiting Control Satisfactory: Yes Mental Status Recovered: Yes - COMMENTS/OBSERVATIONS Free Text/Narrative:: Pt in bed and states pain well controlled except when she coughs. She did state that she gets very shaky standing up, but hasn't really eaten - significant other arriving with food while interview taking place. BP's are better, but RN notes they seem to elevate substantially with visitors. No apparent anesthesia complications.
[2016-10-26] MEDS: Docusate Sodium 100 MG Cap PO SCH ×2 (14:37→22:11)
[2016-10-26] MEDS: Ibuprofen 800 MG Tab PO PRN (23:34)
[2016-10-27] MEDS: Acetaminophen/oxyCODONE 325-5 MG Tab PO PRN ×4 (02:41→15:47)
[2016-10-27] MEDS ORDERED: NIFEdipine 30 MG Tab.ER PO SCH (09:00)
--- NOTE | 2016-10-27 09:05 | PCM.DCSUM1 ---
Discharge Summary - Discharge Data Discharge Date: 10/27/16 Discharge Disposition: Home, Self-Care 01 Condition: Good - Patient Summary/Data Operative Procedure(s) Performed: Primary C/Section - Patient Instructions Diet: Usual Diet as Tolerated Driving: Do Not Drive Showering/Bathing: September Shower Wound/Incision Care: Keep Operative Site/Wound Site Clean and Dry Notify Provider of: Fever, Increased Pain, Swelling and Redness, Drainage, Nausea and/or Vomiting - Discharge Plan Referrals: [facility] [Outside] Serena Lance CNM [Mid-] - ( week - November 02 @ 10:45am w/ Serena Lance week- December 07 @ 9:30am w/ Serena Lance) - General Info Date of Service: 10/27/16 Functional Status: Reports: pain controlled - Review of Systems General: Reports: No Symptoms HEENT: Reports: no symptoms Pulmonary: Reports: no symptoms Cardiovascular: Reports: No Symptoms Gastrointestinal: Reports: No symptoms Genitourinary: Reports: no symptoms Musculoskeletal: Reports: no symptoms Skin: Reports: no symptoms Neurological: Reports: No Symptoms Psychiatric: Reports: no symptoms - Patient Data Vitals - Most Recent: Last Vital Signs Temp 36.6 C 10/27/16 04:00 Pulse 72 10/27/16 04:00 Resp 14 10/27/16 04:00 BP 160/97 H 10/27/16 08:58 Pulse Ox 93 L 10/27/16 04:00 Weight - Most Recent: 74.843 kg I&O - Last 24 hours: Intake & Output 10/26/16 10/27/16 10/27/16 22:59 06:59 14:59 Output Total 700 Balance -700 Med Orders - Current: Current Medications Bisacodyl (Dulcolax) 10 mg RECTAL .ONCE PRN PRN Reason: Constipation Butorphanol Tartrate (Stadol) 1 mg IVPUSH Q1H PRN PRN Reason: Pain Carboprost Tromethamine (Hemabate Ds) 250 mcg IM ASDIRECTED PRN PRN Reason: Post Hemorrhage Diphenhydramine HCl (Benadryl) 25 mg IVPUSH Q6H PRN PRN Reason: Itching or Nausea Docusate Sodium (Colace) 100 mg PO BID VANCE Last Admin: 10/26/16 22:11 Dose: 100 mg Emollient Ointment (Lansinoh Hpa) 0 gm TOP ASDIRECTED PRN PRN Reason: Sore Nipples Last Admin: 10/25/16 21:20 Dose: 1 tube Hydroxyzine Pamoate (Vistaril) 50 mg PO BEDTIME PRN PRN Reason: Insomnia Last Admin: 10/24/16 23:53 Dose: 50 mg Ibuprofen (Motrin) 800 mg PO Q8H PRN PRN Reason: mild pain or fever Last Admin: 10/26/16 23:34 Dose: 800 mg Labetalol HCl (Normodyne) 20 mg IVPUSH Q10M PRN; Protocol PRN Reason: Hypertension Last Admin: 10/25/16 16:30 Dose: 20 mg Nifedipine (Procardia Xl) 30 mg PO DAILY VANCE Last Admin: 10/27/16 08:58 Dose: 30 mg Ondansetron HCl (Zofran) 4 mg IVPUSH Q4H PRN PRN Reason: Nausea/Vomiting Ondansetron HCl (Zofran) 4 mg IV Q4H PRN PRN Reason: Nausea/Vomiting Oxycodone/Acetaminophen (Percocet 325-5 Mg) 1 tab PO Q4H PRN PRN Reason: Pain (moderate 4-6) Last Admin: 10/26/16 22:11 Dose: 1 tab Oxycodone/Acetaminophen (Percocet 325-5 Mg) 2 tab PO Q4H PRN PRN Reason: Pain (moderate 4-6) Last Admin: 10/27/16 07:03 Dose: 2 tab Sodium Chloride (Saline Flush) 10 ml FLUSH ASDIRECTED PRN PRN Reason: Keep Vein Open Sodium Chloride (Saline Flush) 2.5 ml FLUSH ASDIRECTED PRN PRN Reason: Keep Vein Open Discontinued Medications Bupivacaine HCl (Sensorcaine-Mpf 0.5%) Confirm Administered Dose 20 ml .ROUTE .STK-MED ONE Stop: 10/25/16 16:58 Last Admin: 10/25/16 18:14 Dose: Not Given Cefazolin Sodium (Ancef) Confirm Administered Dose 2 gm .ROUTE .STK-MED ONE Stop: 10/25/16 17:26 Citric Acid/Sodium Citrate (Bicitra Solution) 30 ml PO .ONCE VANCE Last Admin: 10/25/16 17:17 Dose: 30 ml Diphenhydramine HCl (Benadryl) 25 - 50 mg IVPUSH Q4H PRN PRN Reason: Itching Stop: 10/26/16 18:09 Fentanyl (Sublimaze) Confirm Administered Dose 100 mcg .ROUTE .STK-MED ONE Stop: 10/25/16 16:11 Last Admin: 10/25/16 18:14 Dose: Not Given Fentanyl (Sublimaze) 50 - 100 mcg IVPUSH Q30M PRN PRN Reason: Breakthrough Pain Stop: 10/26/16 18:07 Furosemide (Lasix) 20 mg IVPUSH ONETIME ONE Stop: 10/25/16 23:25 Last Admin: 10/25/16 23:34 Dose: 20 mg Hydralazine HCl (Apresoline) 10 mg IVPUSH Q4H [facility] Stop: 10/24/16 18:28 Last Admin: 10/24/16 18:46 Dose: 10 mg Hydroxyzine Pamoate (Vistaril) 25 mg PO BEDTIME PRN PRN Reason: Insomnia Lactated Ringer's (Ringers, Lactated) 1,000 mls @ 150 mls/hr IV ASDIRECTED VANCE Last Admin: 10/25/16 09:03 Dose: 150 mls/hr Oxytocin/Lactated Ringer's (Pitocin In Lr 30 Units/500 Ml) 30 unit in 500 mls @ 999 mls/hr IV TITRATE VANCE PRN Reason: 999 MUNITS/MIN Stop: 10/24/16 17:31 Last Admin: 10/25/16 23:29 Dose: Not Given Oxytocin/Lactated Ringer's (Pitocin In Lr 30 Units/500 Ml) 30 unit in 500 mls @ 2 mls/hr IV TITRATE VANCE; 2 MUNITS/MIN PRN Reason: Protocol Last Titration: 10/25/16 13:50 Dose: 18 munits/min, 18 mls/hr Ropivacaine/Fentanyl/NS (Fentanyl 2 Mcg-Ropiv 0.2%-Ns) Confirm Administered Dose 100 mls @ as directed .ROUTE .STK-MED ONE Stop: 10/25/16 15:52 Last Admin: 10/25/16 18:13 Dose: Not Given Cefazolin Sodium/Dextrose 2 gm (/ Premix) 50 mls @ 100 mls/hr IV ONETIME ONE Stop: 10/25/16 17:40 Last Admin: 10/25/16 18:14 Dose: Not Given Lactated Ringer's (Ringers, Lactated) 1,000 mls @ 125 mls/hr IV ASDIRECTED VANCE Last Admin: 10/25/16 19:30 Dose: 125 mls/hr Ketorolac Tromethamine (Toradol) 30 mg IVPUSH Q6H [facility] Stop: 10/26/16 18:01 Last Admin: 10/26/16 18:20 Dose: 30 mg Lidocaine HCl (Xylocaine 1%) 50 ml INJECT .ONCE PRN PRN Reason: Laceration repair Methylergonovine Maleate (Methergine) 0.2 mg IM ASDIRECTED PRN PRN Reason: Post Hemorrhage Misoprostol (Cytotec) 25 mcg PO ONETIME ONE Stop: 10/24/16 17:08 Last Admin: 10/24/16 17:51 Dose: 25 mcg Misoprostol (Cytotec) 25 mcg PO Q4H [facility] Last Admin: 10/25/16 23:31 Dose: Not Given Misoprostol (Cytotec) 25 mcg VAG Q4HR ONE Stop: 10/24/16 21:31 Misoprostol (Cytotec) 25 mcg VAG Q4HR [facility] Last Admin: 10/25/16 23:31 Dose: Not Given Misoprostol (Cytotec) Confirm Administered Dose 25 mcg .ROUTE .STK-MED ONE Stop: 10/24/16 18:07 Last Admin: 10/24/16 18:10 Dose: 25 mcg Morphine Sulfate (Duramorph Pf) Confirm Administered Dose 10 mg .ROUTE .STK-MED ONE Stop: 10/25/16 17:35 Nalbuphine HCl (Nubain) 10 mg IVPUSH Q1H PRN PRN Reason: Pain (severe 7-10) Stop: 10/24/16 19:00 Nalbuphine HCl (Nubain) 10 mg IVPUSH Q1H PRN PRN Reason: Pain Last Admin: 10/25/16 15:02 Dose: 10 mg Nalbuphine HCl (Nubain) 2.5 - 10 mg IVPUSH Q3H PRN PRN Reason: Pruritis Stop: 10/26/16 18:08 Naloxone HCl (Narcan) 0.1 mg IVPUSH ONETIME PRN PRN Reason: Respiratory Depression Stop: 10/26/16 18:09 Octyl Cyanoacrylate (Dermabond Advance) Confirm Administered Dose 1 applic .ROUTE .STK-MED ONE Stop: 10/25/16 17:49 Ondansetron HCl (Zofran) Confirm Administered Dose 4 mg .ROUTE .STK-MED ONE Stop: 10/25/16 17:35 Oxycodone/Acetaminophen (Percocet 325-5 Mg) 1 - 2 tab PO Q4H PRN PRN Reason: Breakthrough Pain Stop: 10/26/16 18:00 Last Admin: 10/26/16 04:59 Dose: 1 tab Oxytocin (Pitocin) Confirm Administered Dose 20 unit .ROUTE .STK-MED ONE Stop: 10/25/16 17:25 Phenylephrine HCl (Phenylephrine In Ns 100 Mcg/Ml) Confirm Administered Dose 1 mg .ROUTE .STK-MED ONE Stop: 10/25/16 17:51 Ropivacaine (Naropin 0.2%) Confirm Administered Dose 20 ml .ROUTE .STK-MED ONE Stop: 10/25/16 15:52 Last Admin: 10/25/16 18:14 Dose: Not Given Sterile Water (Sterile Water For Irrigation) 1,000 ml IRR ASDIRECTED PRN PRN Reason: delivery Terbutaline Sulfate (Brethine) 0.25 mg SUBCUT ASDIRECTED PRN PRN Reason: Tacysystole Last Admin: 10/25/16 16:45 Dose: 0.25 mg - Exam General: Reports: alert, oriented HEENT: Reports: Pupils equal, Pupils reactive, EOMI, Mucous membr. moist/pink Neck: Reports: supple Lungs: Reports: Clear to auscultation, Normal respiratory effort Cardiovascular: Reports: Regular Rate, Regular Rhythm Abdomen: Reports: bowel sounds present, soft, no tenderness, no distension (Female) Exam: Normal External Exam, Normal Speculum Exam, Normal Bimanual Exam Rectal (Female) Exam: Normal Exam, Normal Rectal Tone Back Exam: Reports: Normal Inspection, Full Range of Motion Extremities: Reports: no edema, normal pulses Skin: Reports: warm, dry, intact Wound/Incisions: Reports: healing well Neurological: Reports: no new focal deficit Psy/Mental Status: Reports: alert, normal affect, normal mood *Q Meaningful Use (DIS) - VTE *Q VTE Criteria *Q: - Stroke *Q Stroke Criteria *Q: - AMI *Q AMI Criteria *Q:
[2016-10-27] MEDS: Ibuprofen 800 MG Tab PO PRN (10:00)
[2016-10-27 12:42] VITALS: BP 139/83
[2016-10-27] MEDS: Lanolin 100% Cream 7 GM Tube TOP PRN (14:28)
[2016-10-27] MEDS: Docusate Sodium 100 MG Cap PO SCH (14:34)
== END 2016-10-27 17:10 | disposition home or self-care (01) | DRG 766 ==
LOC: MW.OBCHECK 16:33 → MW.OB 16:39 → UNDOADMOB 16:39 → OBSVTOIN 17:36 → INTOOBSV 17:36 → MW.OB 10-25 17:36 → OBSVTOIN 10-25 17:36 → MW.OB 10-25 19:10 → UNDODISIN 10-27 17:10
PROVIDERS: ADMIT Advanced Practice Midwife; ATTEND Obstetrics & Gynecology
PROC: 10D00Z1 Extraction of Products of Conception, Low, Open Approach (ICD-10-PCS; principal; 2016-10-24)
PROC: 3E0P7GC Introduction of Other Therapeutic Substance into Female Reproductive, Via Natural or Artificial Opening (ICD-10-PCS; 2016-10-24)
PROC: 10907ZC Drainage of Amniotic Fluid, Therapeutic from Products of Conception, Via Natural or Artificial Opening (ICD-10-PCS; 2016-10-24)
DX: O13.4 Gestational [pregnancy-induced] hypertension without significant proteinuria, complicating childbirth (principal); O76 Abnormality in fetal heart rate and rhythm complicating labor and delivery; Z3A.38 38 weeks gestation of pregnancy; Z37.0 Single live birth
CPT/HCPCS: 01961; 01967; 01968; 36415; 59025; 80053; 81003; 84550; 85014; 85018; 85027; 86850; 86900; 86901; A9270-GY; J0360; J0690; J1885; J2270; J2300; J2405; J2590; J3105; J7120

== ENCOUNTER 2024-12-26 16:52 | Emergency (ER) | payer SELFPAY ==
[2024-12-26] MEDS: Ondansetron 4 MG Tab.DIS PO ONE (17:46)
[2024-12-26 17:51] VITALS: BP 127/81; PULSE 82
[2024-12-26] MEDS: Diphtheria,Pertussis(Acell),Tetanus Vaccine 0.5 ML Syringe IM ONE (19:21)
[2024-12-26] MEDS: Lidocaine 1% with EPINEPHrine 1:100,000 10 ML MDV INJECT ONE (19:21)
[2024-12-26] MEDS: Lidocaine 2% with EPINEPHrine 1:200,000 20 ML SDV INJECT ONE (19:23)
== END 2024-12-26 20:56 | disposition home or self-care (01) ==
LOC: MW.ED 16:52
DX: S61.211A Laceration without foreign body of left index finger without damage to nail, initial encounter (principal); Z23 Encounter for immunization; W26.8XXA Contact with other sharp object(s), not elsewhere classified, initial encounter
CPT/HCPCS: 12002; 73130; 90471; 90715; 99283; A9270